=== PATIENT | male | born 1970 | race Native Hawaiian/Other Pacific Islander ===

== ENCOUNTER 2016-07-28 16:44 | Outpatient (CLI) | payer BC, OTHER | END 2016-07-28 19:07 | disposition home or self-care (01) | LOC: CT 16:44 | DX: K11.9 Disease of salivary gland, unspecified (principal) ==

== ENCOUNTER 2017-05-07 16:44 | Outpatient (CLI) | payer BC, OTHER | END 2017-05-07 23:12 | disposition home or self-care (01) | LOC: RAD 16:44 | DX: J20.8 Acute bronchitis due to other specified organisms (principal) ==

== ENCOUNTER 2018-12-03 09:42 | Outpatient (CLI) | payer BC, OTHER | END 2018-12-03 20:36 | disposition home or self-care (01) | LOC: RAD 09:42 | DX: R10.9 Unspecified abdominal pain (principal); R30.0 Dysuria ==

== ENCOUNTER 2020-10-22 10:05 | Outpatient (CLI) | payer BC, OTHER | END 2020-10-22 23:59 | disposition home or self-care (01) | LOC: RAD 10:05 | PROVIDERS: ATTEND Nurse Practitioner Family | DX: Z79.899 Other long term (current) drug therapy (principal); I10 Essential (primary) hypertension; R53.82 Chronic fatigue, unspecified | CPT/HCPCS: 36415; 82728; 83540; 83550; 85027 ==

== ENCOUNTER 2020-12-25 08:20 | Outpatient (CLI) | payer BC, OTHER | END 2020-12-25 19:06 | disposition home or self-care (01) | LOC: RAD 08:20 | PROVIDERS: ATTEND Nurse Practitioner Family | DX: Z20.822 Contact with and (suspected) exposure to COVID-19 (principal); R05 Cough ==

== ENCOUNTER → 2022-02-22 | Outpatient (CLI) | payer BC, OTHER | LOC: RESP 16:16 | PROVIDERS: ATTEND Pain Medicine Interventional Pain Medicine | DX: Z79.899 Other long term (current) drug therapy (principal) | CPT/HCPCS: 93005 ==